=== PATIENT | male | born 2000 | race Caucasian/White ===

== ENCOUNTER 2021-03-26 20:33 | Emergency (ER) | payer BC ==
[~2021-03-26] VITALS: Ht 188 cm; Wt 150.0 kg
[2021-03-26 20:49] VITALS: BP 115/68
== END 2021-03-27 00:20 | disposition home or self-care (01) ==
LOC: ER 20:34
DX: S62.306A Unspecified fracture of fifth metacarpal bone, right hand, initial encounter for closed fracture (principal); M79.641 Pain in right hand; X58.XXXA Exposure to other specified factors, initial encounter; Y93.89 Activity, other specified; Y92.89 Other specified places as the place of occurrence of the external cause; Y99.8 Other external cause status
CPT/HCPCS: 29125; 73130; 99283